=== PATIENT | female | born 1960 | race Caucasian/White ===

== ENCOUNTER → 2018-11-26 08:06 | Outpatient (CLI) | payer OTHER, SELFPAY ==
--- NOTE | 2018-11-26 | DI.MRI.S_ITS ---
PROCEDURE: MR ORBITS FACE NECK WO/W CON INDICATIONS: Cervicalgia TECHNIQUE: Sagittal/axial/coronal T1 spin echo and STIR. After the administration of contrast, axial/coronal/sagittal T1 fast spin echo with fat saturation through the neck. COMPARISON: [facility], CT, ANGIO CHEST ABDOMEN PELVIS, 09/28/2016, 13:55. FINDINGS: Image quality: Excellent. Lymph nodes: No enlarged nodes are seen throughout the neck. Vessels: Visualized vasculature appears normal, with normal flow voids and enhancement. Neck spaces: The oropharynx, nasopharynx and pharynx are unremarkable, without mucosal lesions seen. Vocal cords, false vocal cords, pyriform sinuses, epiglottis, vallecula, and tongue base all appear normal. Extramucosal spaces of the neck also appear unremarkable. Glands: The parotid and submandibular glands appear normal. Thyroid gland is small in size. Miscellaneous: Visualized brain and orbits appear normal. Lung apices appear clear. Superficial soft tissues appear normal. Visualized sinuses and mastoids appear clear. Bones: Marrow has normal overall signal. Degenerative changes are seen, with mild C4-C5 and C5-C6 disc space narrowing and moderate C6-C7 disc space narrowing. IMPRESSION: No significant abnormality is seen for age. Lower cervical spine degenerative changes are seen, which are most prominent at C6-C7. No masses or abnormal enhancement can be seen. Dictated by: Karan Caballero M.D. on 11/26/2018 at 9:11 Approved by: Karan Caballero M.D. on 11/26/2018 at 9:15
== END ==
PROVIDERS: PCP Family Medicine; Visit Provider Otolaryngology Facial Plastic Surgery
DX: M54.2 Cervicalgia (principal); G50.1 Atypical facial pain; M47.812 Spondylosis without myelopathy or radiculopathy, cervical region
CPT/HCPCS: 70543

== ENCOUNTER → 2018-11-28 13:10 | Outpatient (CLI) | payer OTHER, SELFPAY ==
--- NOTE | 2018-11-28 | DI.RAD.S_ITS ---
PROCEDURE: FL BARIUM SWALLOW W SPEECH INDICATIONS: DYSPHAGIA TECHNIQUE: Examination was conducted in conjunction with speech pathology per standard protocol. In the lateral projection, filming was performed of the patient swallowing. AP projection filming may also be performed with patient swallowing. COMPARISON: None. FINDINGS: Function: The oral preparatory phase appears normal, with proper containment. The subsequent oral propulsive phase, pharyngeal phase, and esophageal phase of swallowing also appear normal with all proffered substances. No laryngotracheal penetration or aspiration. No pathologic vallecular pooling. Morphology: No cricopharyngeal bar is identified. No cervical esophageal webs. No Zenker's diverticulum. No strictures. IMPRESSION: Normal examination, please also refer to the dedicated speech therapy swallowing evaluation report that will be independently generated. Dictated by: Keon Lundberg M.D. on 11/28/2018 at 15:18 Approved by: Keon Lundberg M.D. on 11/28/2018 at 15:18
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
== END ==
PROVIDERS: PCP Family Medicine; Visit Provider Otolaryngology Facial Plastic Surgery
DX: R13.10 Dysphagia, unspecified (principal)
CPT/HCPCS: 74230; 92611